=== PATIENT | female | born 1970 | race Caucasian/White ===

== ENCOUNTER 2023-12-02 11:20 | Emergency (ER) | payer BC ==
--- OUTSIDE RECORDS SUMMARY | 2023-12-02 11:22 | XMS REPORT | Clinical Summary ---
Author Name Unknown Organization [facility] Address [address] [place] [address] Care Team Providers Care Pharmacist Aide Name Role Phone Unavailable Primary Care Provider Unavailabl e Social History Tobacco Use Types Packs/Day Years Used Date Smoking Tobacco: Never Assessed Sex and Gender Information Value Date Recorded Sex Assigned at Female 05/12/2020 2:49 PM CDT Gender Identity Female 05/12/2020 2:49 PM CDT Sexual Orientation Straight 05/12/2020 2: 49 PM CDT Plan of Treatment Health Maintenance Due Date Last Done Comments COVID-19 Vaccine (#1) 05/23/1971 Influenza Vaccine 04/05/2023
[2023-12-02] MEDS ORDERED: ONDANSETRON 4 MG/2 ML VIAL ONE (11:51)
[2023-12-02] MEDS ORDERED: dexAMETHasone 10 MG/ML VIAL ONE (11:51)
[2023-12-02] MEDS ORDERED: MORPHINE 4 MG/ML SYR ONE (11:52)
[2023-12-02] MEDS ORDERED: DIPHENHYDRAMINE 50 MG/ML VIAL ONE (12:28)
--- NOTE | 2023-12-02 13:30 | ER ---
Nurse's Notes [facility] Name: Shena Chopra Age: 53 yrs Sex: Female : 1970 Arrival Date: 12/02/2023 Time: 11:20 Bed 12 Private MD: Diagnosis: Chronic back pain Presentation: 12/01 11:48 Chief complaint: Patient states: mid back pain since yesterday. Coronavirus screen: At iw this time, the client does not indicate any symptoms associated with coronavirus-19. Risk Assessment: Do you want to hurt yourself or someone else? Patient reports no desire to harm self or others. 11:48 Method Of Arrival: Ambulatory iw 11:48 Acuity: YANICK 3 iw 12:07 Ebola Screen: No symptoms or risks identified at this time. Initial Sepsis Screen: Does as6 the patient meet any 2 criteria? No. Patient's initial sepsis screen is negative. Does the patient have a suspected source of infection? No. Patient's initial sepsis screen is negative. Onset of symptoms was December 01, 2023. 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 - Infectious Disease History:: Denies. - Social history:: Smoking status: Patient denies any tobacco usage or history of. - Family history:: not pertinent. - Hospitalizations: : No recent hospitalization is reported. Screenin:07 [facility] ED Fall Risk Assessment (Adult) History of falling in the last 3 months, as6 including since admission No falls in past 3 months (0 pts) Confusion or Disorientation No (0 pts) Intoxicated or Sedated No (0 pts) Impaired Gait No (0 pts) Mobility Assist Device Used No (0 pt) Altered Elimination No (0 pt) Score/Fall Risk Level 0 - 2 = Low Risk Oriented to surroundings, Maintained a safe environment, Educated pt \T\ family on fall prevention, incl call for assistance when getting out of bed, Assessed \T\ reinforced patient's understanding of fall precautions. Abuse screen: Denies threats or abuse. Denies injuries from another. Nutritional screening: No deficits noted. Tuberculosis screening: No symptoms or risk factors identified. Assessment: 12:05 General: Appears uncomfortable, Behavior is calm, cooperative. Pain: Complains of pain as6 in right mid back Quality of pain is described as sharp, shooting, stabbing. Neuro: Level of Consciousness is awake, alert, obeys commands, Oriented to person, place, time, situation. Cardiovascular: Capillary refill < 3 seconds Patient's skin is warm and dry. Respiratory: Respiratory effort is even, unlabored, Respiratory pattern is regular, symmetrical. GI: No deficits noted. No signs and/or symptoms were reported involving the gastrointestinal system. : No deficits noted. No signs and/or symptoms were reported regarding the genitourinary system. EENT: No deficits noted. No signs and/or symptoms were reported regarding the EENT system. Derm: Skin is intact, is healthy with good turgor. Musculoskeletal: Reports pain in right mid back. 12:38 Reassessment: pt noted to have redness and itching to right arm after morphine iw administration , ERP notified , order for benadryl, given now. 13:28 Reassessment: Patient appears in no apparent distress at this time. Patient and/or as6 family updated on plan of care and expected duration. Pain level reassessed. Patient is alert, oriented x 3, equal unlabored respirations, skin warm/dry/pink. Patient states feeling better. Patient states symptoms have improved. Vital Signs: 11:49 BP 151 / 94; Pulse 80; Resp 16; Temp 98.4; Pulse Ox 98% on R/A; Weight 83.01 kg; Height iw 5 ft. 5 in. ; Pain 10/10; 11:49 Body Mass Index 30.45 (83.01 kg, 165.1 cm) iw 11:49 Pain Scale: Adult iw ED Course: 11:22 Patient arrived in ED. mr 11:23 Huber Espana MD is Attending Physician. rn 11:48 Triage completed. iw 11:49 Arm band placed on. iw 11:50 Mika Cazares, NILE is Primary Nurse. as6 12:06 Bed in low position. Call light in reach. as6 13:28 No provider procedures requiring assistance completed. as6 13:31 Provided Education on: follow up. as6 13:37 IV discontinued, intact, bleeding controlled, No redness/swelling at site. Pressure as6 dressing applied. Administered Medications: 12:24 Drug: morphine IVP or IV 4 mg IVP once over 4 mins Route: IVP; Infused Over: 4 mins; iw Site: right hand; 12:30 Follow up: Response: Adverse reaction, Physician notified iw 12:24 Drug: Ondansetron IVP 4 mg IVP once; over 2 minutes Route: IVP; Site: right hand; iw 13:31 Follow up: Response: No adverse reaction as6 12:24 Drug: Decadron - Dexamethasone IVP 10 mg IVP once Route: IVP; Site: right hand; iw 13:31 Follow up: Response: No adverse reaction as6 12:36 Drug: diphenhydrAMINE IVP 25 mg IVP once Route: IVP; Site: right hand; iw 13:31 Follow up: Response: No adverse reaction as6 Medication: 12:07 VIS not applicable for this client. as6 Outcome: 13:29 Discharge ordered by . rn 13:31 Discharged to home ambulatory, with significant other, as6 13:31 Condition: stable 13:31 Discharge instructions given to patient, Instructed on discharge instructions, follow up and referral plans. Demonstrated understanding of instructions, follow-up care, 13:38 Patient left the ED. as6 Signatures: Sara Bill Reg Reg mr Angelia Elizondo, NILE DOWD iw Huber Espana MD MD rn Slawson, Ashby, RN RN as6
--- NOTE | 2023-12-02 13:30 | EDPHYS ---
Physician Documentation [facility] Name: Shena Chopra Age: 53 yrs Sex: Female : 1970 Arrival Date: 12/02/2023 Time: 11:20 Bed 12 Private MD: ED Physician Huber Espana HPI: 12/01 11:56 This 53 yrs old Female presents to ER via Ambulatory with complaints of Back Pain. rn 11:56 The patient presents with pain that is chronic. The symptoms are located in the lumbar rn area and right mid back. 11:56 Onset: The symptoms/episode began/occurred yesterday. The pain does not radiate. rn Associated signs and symptoms: Pertinent negatives: abdominal pain, dysuria, fever, hematuria, incontinence, nausea, numbness, tingling, urinary retention, vomiting, weakness. Modifying factors: The patient symptoms are alleviated by nothing, the patient symptoms are aggravated by any movement. Severity of symptoms: At their worst the symptoms were moderate, in the emergency department the symptoms are unchanged. The patient has experienced similar episodes in the past, and the symptoms today are exactly the same. The patient has been recently seen by a physician:. Patient states has had chronic back pain for years. Identical pain has developed over the last 2 days to mid and right mid back. Hurts with movement. No trauma. No fever. No urinary symptoms. Identical to previous episodes. Seen at [facility] [place] emergency room today, given Toradol and Flexeril without improvement so came here for medication. States usually morphine helps. No new symptoms. No bowel or bladder issues. No weakness of lower extremities.. 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 - Infectious Disease History:: Denies. - Social history:: Smoking status: Patient denies any tobacco usage or history of. - Family history:: not pertinent. - Hospitalizations: : No recent hospitalization is reported. ROS: 11:56 Constitutional: Negative for fever, chills, and weight loss, Cardiovascular: Negative rn for chest pain, palpitations, and edema, Respiratory: Negative for shortness of breath, cough, wheezing, and pleuritic chest pain, Abdomen/GI: Negative for abdominal pain, nausea, vomiting, diarrhea, and constipation, Back: Positive for back pain negative for injury MS/Extremity: Negative for injury and deformity, Neuro: Negative for headache, weakness, numbness, tingling, and seizure, Exam: 11:56 Constitutional: This is a well developed, well nourished patient who is awake, alert, rn and in no acute distress. Ambulatory to chair without difficulty or assistance Cardiovascular: Regular rate and rhythm. No pulse deficits. Abdomen/GI: Soft, nontender, no masses Back: No spinal tenderness. No CVA tenderness. MS/ Extremity: Pulses equal, no cyanosis. Neuro: Awake and alert, GCS 15, oriented to person, place, time, and situation. Motor strength 5/5 in all extremities. Sensory grossly intact. Cerebellar exam normal. Normal gait. Vital Signs: 11:49 BP 151 / 94; Pulse 80; Resp 16; Temp 98.4; Pulse Ox 98% on R/A; Weight 83.01 kg; Height iw 5 ft. 5 in. ; Pain 10/10; 11:49 Body Mass Index 30.45 (83.01 kg, 165.1 cm) iw 11:49 Pain Scale: Adult iw MDM: 11:23 Patient medically screened. rn 13:15 Differential diagnosis: Osteoarthritis sprain, Chronic pain. Data reviewed: vital rn signs, nurses notes, and as a result, I will discharge patient. Counseling: I had a detailed discussion with the patient and/or guardian regarding the historical points, exam findings, and any diagnostic results supporting the discharge/admit diagnosis, the need for outpatient follow up, to return to the emergency department if symptoms worsen or persist or if there are any questions or concerns that arise at home. Response to treatment: the patient's symptoms have markedly improved after treatment, and as a result, I will discharge patient. Special discussion: I discussed with the patient/guardian in detail that at this point there is no indication for admission to the hospital. It is understood, however, that if the symptoms persist or worsen the patient needs to return immediately for re-evaluation. 12/01 11:43 Order name: IV Start; Complete Time: 12:24 rn Administered Medications: 12:24 Drug: morphine IVP or IV 4 mg IVP once over 4 mins Route: IVP; Infused Over: 4 mins; iw Site: right hand; 12:30 Follow up: Response: Adverse reaction, Physician notified iw 12:24 Drug: Ondansetron IVP 4 mg IVP once; over 2 minutes Route: IVP; Site: right hand; iw 13:31 Follow up: Response: No adverse reaction as6 12:24 Drug: Decadron - Dexamethasone IVP 10 mg IVP once Route: IVP; Site: right hand; iw 13:31 Follow up: Response: No adverse reaction as6 12:36 Drug: diphenhydrAMINE IVP 25 mg IVP once Route: IVP; Site: right hand; iw 13:31 Follow up: Response: No adverse reaction as6 Disposition Summary: 12/02/23 13:29 Discharge Ordered Notes: Location: Home rn Problem: new rn Symptoms: have improved rn Condition: Stable rn Diagnosis - Chronic back pain rn Followup: rn - With: Private Physician - When: As needed - Reason: Recheck today's complaints, Re-evaluation by your physician Discharge Instructions: - Discharge Summary Sheet rn - Chronic Back Pain rn - Managing Chronic Back Pain rn Forms: - Medication Reconciliation Form rn - Antibiotic trade mark attorney - Prescription Opioid Use rn - Patient Portal Instructions rn - Leadership Thank You Letter rn Signatures: Angelia Elizondo RN RN iw Huber Espana MD MD rn Slawson, Ashby RN as6 Corrections: (The following items were deleted from the chart) 11:58 11:56 Constitutional: Negative for fever, chills, and weight loss, Cardiovascular: rn Negative for chest pain, palpitations, and edema, Respiratory: Negative for shortness of breath, cough, wheezing, and pleuritic chest pain, Abdomen/GI: Negative for abdominal pain, nausea, vomiting, diarrhea, and constipation, Back: Positive for back pain negative for injury MS/Extremity: Negative for injury and deformity, rn
[2023-12-02 13:46] VITALS: BP 151/94; TEMP 98.4; O2SAT 98
== END 2023-12-02 13:38 | disposition home or self-care (01) ==
LOC: ER 11:20
DX: M54.9 Dorsalgia, unspecified (principal); Z88.0 Allergy status to penicillin
CPT/HCPCS: J1200; J1100; J2405; 96374; 96375; 99284